=== PATIENT | male | born 1985 | race Caucasian/White ===

== ENCOUNTER → 2019-01-04 | Outpatient (REF) | payer BC ==
[~2019-01-04] MED LIST: [UNRECOGNIZED DRUG - OTHER] PO
== END ==
LOC: M LAB REF 15:51
PROVIDERS: ATTEND Surgery
DX: D17.1 Benign lipomatous neoplasm of skin and subcutaneous tissue of trunk (principal)

== ENCOUNTER 2019-04-25 12:23 | Emergency (ER) | payer BC ==
[~2019-04-25] VITALS: Ht 175.3 cm; Wt 84.1 kg
[2019-04-25] MEDS ORDERED: [UNRECOGNIZED DRUG - OTHER] PO (12:32)
[2019-04-25] MEDS ORDERED: ONDANSETRON 4 MG ORAL DISINTEGRATING TAB (Q0162 PER 1MG) PO ONE ×2 (13:15→15:15)
[2019-04-25] MEDS ORDERED: ACETAMINOPHEN 325 MG TAB PO ONE (13:15)
[2019-04-25 14:32] VITALS: BP 126/60
== END 2019-04-25 15:10 | disposition home or self-care (01) ==
LOC: M ED 12:23
DX: J10.1 Influenza due to other identified influenza virus with other respiratory manifestations (principal)
CPT/HCPCS: 99283; Q0162

== ENCOUNTER 2022-02-07 22:00 | Emergency (ER) | payer BC ==
[~2022-02-07] VITALS: Ht 175.3 cm; Wt 80.5 kg
[2022-02-07 22:24] LABS: BASO % 0.5 % (0.0-1.0); EOS # 0.1 10^3/uL (0.0-0.5); EOS % 1.4 % (0.0-3.0); HEMATOCRIT 43.4 % (42.0-52.0); HEMOGLOBIN 14.8 g/dl (13.5-17.5); LYMPH # 3.1 10^3/uL (1.5-5.0); LYMPH % 38.8 % (24.0-44.0); MEAN CORPUSCULAR HEMOGLOBIN 30.3 pg (27.0-33.0); MEAN CORPUSCULAR HGB CONC 34.1 g/dl (32.0-36.5); MEAN CORPUSCULAR VOLUME 88.9 fl (80.0-96.0); MONO # 0.6 10^3/uL (0.0-0.8); MONO % 7.7 % (2.0-8.0); NEUTROPHILS # 4.1 10^3/uL (1.5-8.5); NEUTROPHILS % 51.5 % (36.0-66.0); PLATELET COUNT, AUTOMATED 194 10^3/uL (150-450); RED BLOOD COUNT 4.88 10^6/uL (4.30-6.10); WHITE BLOOD COUNT 7.9 10^3/uL (4.0-10.0)
[2022-02-07 22:56] LABS: CPK CREATINE PHOSPHOKINASE 124 U/L (39-308)
[2022-02-07 23:02] LABS: BLOOD UREA NITROGEN 17 MG/DL (7-18); CARBON DIOXIDE LEVEL 29 MEQ/L (21-32); CHLORIDE LEVEL 106 MEQ/L (98-107); CREATININE FOR GFR 1.29 MG/DL (0.70-1.30); FREE T4 1.08 NG/DL (0.76-1.46); GLOMERULAR FILTRATION RATE > 60.0 (>60); GLUCOSE, FASTING 104 MG/DL (70-100); POTASSIUM SERUM 3.7 MEQ/L (3.5-5.1); SODIUM LEVEL 139 MEQ/L (136-145)
[2022-02-07 23:55] LABS: MAGNESIUM LEVEL 2.1 MG/DL (1.8-2.4)
[2022-02-08 00:48] LABS: CPK CREATINE PHOSPHOKINASE 115 U/L (39-308)
[2022-02-08 01:15] VITALS: BP 158/94
[2022-02-08] MEDS ORDERED: HOLTER MONITOR XX (01:27)
[2022-02-08 01:57] LABS: CHOLESTEROL LEVEL 190 MG/DL (<200); CHOLESTEROL RISK RATIO 5.757 (<5); HDL CHOLESTEROL 33 MG/DL (>40); LDL CHOLESTEROL 120 MG/DL (<100); NON-HDL-C 157 MG/DL; TRIGLYCERIDES LEVEL 187 MG/DL (<150)
== END 2022-02-08 01:43 | disposition home or self-care (01) ==
LOC: M ED 22:00
DX: R00.2 Palpitations (principal)